=== PATIENT | male | born 1975 | race Native Hawaiian/Other Pacific Islander ===

== ENCOUNTER 2016-04-29 14:55 | Emergency (ER) | payer OTHER ==
[~2016-04-29] VITALS: Ht 182.9 cm; Wt 90.7 kg
== END 2016-04-29 16:46 | disposition home or self-care (01) ==
LOC: ED 14:55
DX: S16.1XXA Strain of muscle, fascia and tendon at neck level, initial encounter (principal); S20.211A Contusion of right front wall of thorax, initial encounter; S30.0XXA Contusion of lower back and pelvis, initial encounter; S20.222A Contusion of left back wall of thorax, initial encounter; S20.221A Contusion of right back wall of thorax, initial encounter; S40.011A Contusion of right shoulder, initial encounter; S43.101A Unspecified dislocation of right acromioclavicular joint, initial encounter; W13.2XXA Fall from, out of or through roof, initial encounter; Y92.009 Unspecified place in unspecified non-institutional (private) residence as the place of occurrence of the external cause
CPT/HCPCS: 96360; 96374; 96375; 99284; J1170; J2405